=== PATIENT | male | born 1990 | race Two or more races ===

== ENCOUNTER 2024-01-18 10:46 | Emergency (ER) | payer SELFPAY ==
[2024-01-18 10:50] VITALS: BP 143/100; PULSE 103; TEMP 36.6; O2SAT 98; BMI 38.4
--- NOTE | 2024-01-18 11:02 | ED.GENADUL1 ---
HPI HPI - General Adult General Chief complaint: Recheck/Abnormal Lab/Rx Stated complaint: STD CHECK Time Seen by Provider: 01/18/24 10:49 History of Present Illness HPI narrative: 33-year-old male to the emergency department with chief complaint of requesting treatment for chlamydia. His female sexual partner tested positive for chlamydia during screening. He does not have any symptoms at this time. Related Data Previous Rx's ?Medication ?Instructions ?Recorded doxycycline monohydrate 100 mg 100 mg PO BID 7 days #14 caps 01/18/24 capsule Allergies Allergy/AdvReac Type Severity Reaction Status Date / Time No Known Drug Allergies Allergy Verified 01/18/24 10:53 Opioid HPI Opioid Management Most Recent Opioid Data: No Data to Display Review of Systems ROS Status of ROS 10 or more systems reviewed and unremarkable except as noted in history and below Exam Narrative Exam Narrative: VITALS: I have reviewed the triage vital signs. GENERAL: Well developed, well appearing adult in no acute distress. NEURO: Alert and oriented. Moves all extremities. Face is symmetric and expressive. EYES: PERRL. No scleral icterus or conjunctival injection. No discharge. HENT: Normocephalic, atraumatic. Hearing is grossly intact. Nares grossly patent and without discharge. Mucous membranes moist. NECK: No JVD. Patient moves neck without restriction. EXTREMITIES: Symmetric muscle bulk. No joint swelling. No clubbing, cyanosis, or deformity. SKIN: Warm and dry. Normal turgor. No rash or lesions appreciated. PSYCH: Mood, affect, and interaction is appropriate to the setting. Constitutional Vital Signs, click to edit/add: Last Vital Signs Temp 97.9 F 01/18/24 10:50 Pulse 103 H 01/18/24 10:50 Resp 18 01/18/24 10:50 BP 143/100 H 01/18/24 10:50 Pulse Ox 98 01/18/24 10:50 O2 Del Method Room Air 01/18/24 10:50 Course Vital Signs Vital signs: Vital Signs Temperature 97.9 F 01/18/24 10:50 Pulse Rate 103 H 01/18/24 10:50 Respiratory Rate 18 01/18/24 10:50 Blood Pressure 143/100 H 01/18/24 10:50 Pulse Oximetry 98 01/18/24 10:50 Oxygen Delivery Method Room Air 01/18/24 10:50 Temperature 97.9 F 01/18/24 10:50 Pulse Rate 103 H 01/18/24 10:50 Respiratory Rate 18 01/18/24 10:50 Blood Pressure 143/100 H 01/18/24 10:50 Pulse Oximetry 98 01/18/24 10:50 Oxygen Delivery Method Room Air 01/18/24 10:50 Medical Decision Making MDM Narrative Medical decision making narrative: Well-appearing 33-year-old male requesting STD treatment. Vital stable, the patient is afebrile. Reports he is currently asymptomatic. Gonorrhea and Chlamydia testing was sent. Rocephin and doxycycline. Safe sex practices were discussed. Return precautions were discussed. All questions were answered. Patient was discharged home. Discharge Plan Discharge Stand Alone Forms: Portal Instructions Chief Complaint: Recheck/Abnormal Lab/Rx Clinical Impression: Encounter for assessment of STD exposure Patient Disposition: Home, Self-Care Time of Disposition Decision: 11:00 Condition: Good Mode of Transportation: Private Vehicle Prescriptions / Home Meds: New doxycycline monohydrate 100 mg capsule 100 mg PO BID 7 Days Qty: 14 0RF Print Language: Haitian Instructions: Chlamydia (ED), Sexually Transmitted Diseases (ED), Safe Sex Practices (ED)
[2024-01-18] MEDS: CEFTRIAXONE 500 MG VIAL IM (11:07)
[2024-01-18] MEDS: WATER FOR INJECTION, STERILE 20 ML VIAL INJ (11:15)
[2024-01-18 11:16] VITALS: BP 136/99; PULSE 106; O2SAT 97
[2024-01-21 06:09] LABS: Neisseria gonorrhoeae, NAA Negative (Negative)
== END 2024-01-18 11:19 | disposition home or self-care (01) ==
LOC: ER 11:11
PROVIDERS: Emergency Provider Student in an Organized Health Care Education/Training Program
DX: Z20.2 Contact with and (suspected) exposure to infections with a predominantly sexual mode of transmission (principal)
CPT/HCPCS: 87491; 87591; 96372; 99284; J0696

== ENCOUNTER 2024-06-22 02:44 | Emergency (ER) | payer OTHER, SELFPAY ==
[2024-06-22 02:47] VITALS: BP 132/89; PULSE 83; TEMP 36.6; O2SAT 96; BMI 39.2
[2024-06-22 02:52] VITALS: O2SAT 96
[2024-06-22 02:53] VITALS: O2SAT 83
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
--- OUTSIDE RECORDS SUMMARY | 2024-06-22 02:53 | XMS_ITS | CCD ---
Author Organization 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 9 tablet 0 02/27/2021 Active Comment on above: Take 1 tablet by saturnino th three times daily as needed. fluticasone propionate 0.05 mg/actuat metered dose nasal spray (1 source) Corticosteroid Start: 1 take 2 spray(s) nasal route once daily at bedtime fluticasone (FLONASE ALLERGY RELIEF) 50 mcg/actuation nasal spray Indications: Acute otitis media, right Use 2 Sprays in each nostril daily at bedtime. 1 Bottle 0 01/30/2021 Active Comment on above: Use 2 Sprays in each nostril daily at bedtime. loratadine 10 mg oral tablet (1 source) Start: 1 take 1 tablet by mouth once daily loratadine (CLARITIN) 10 mg tablet Indications: Acute otitis media, right Take 1 tablet by mouth once daily. 20 tablet 0 01/30/2021 Active Comment on above: Take 1 tablet by saturnino th once daily. methylPREDNISolone (1 source) Corticosteroid Start: 1 methylPREDNISolone (MEDROL, RENETTA,) 4 mg Dose-Pack Indications: Acute right-sided low back pain with right-sided sciatica As Instructed per package 1 Package 0 02/27/2021 Active Comment on above: As Instructed per cathleen ckage Problems Problem Classification Problem Date Documented Da te Episodic/Chronic Alcohol-related disorders (1 source) Alcohol use, unspecified with intoxication, uncomplicated; Translations: [Alcohol use, unspecified with intoxication, uncomplicated] Onset: 02-18-2024 Episodic Spondylosis; intervertebral disc disorders; other back problems (1 source) Acute back pain with sciatica; Translations: [Lumbago with sciatica, right side] 02-27-2021 Episodic Unclassified (1 source) Overdose Onset: 12-24-2023 Results Test Name Value Interpretation Reference Range Facility Alcoholon 02-18-2024 Blood Alcohol Concentration 0.250 G/dL Normal [facility] Comment on above: Performed By: #### A LCOH #### [facility] [address] [place] [address] Ethanol [Mass/Vol] 285 mg/dL Normal [facility] Comment on above: Performed By: #### A LCOH #### [facility] [address] [place] [address] CBC With Platelet and Differ entialon 02-18-2024 Basophils (Bld) [#/Vol] 0.2 10*3/uL Normal 0.0-0.2 [facility] Comment on above: Performed By: #### C BCWD #### [facility] [address] [place] [address] Basophils/100 WBC (Bld) 1.5 % Normal [facility] Comment on above: Performed By: #### C BCWD #### [facility] [address] [place] [address] Eosinophils (Bld) [#/Vol] 0.4 10*3/uL Normal 0.0-0.7 [facility] Comment on above: Performed By: #### C BCWD #### [facility] [address] [place] [address] Eosinophils/100 WBC (Bld) 3.8 % Normal [facility] Comment on above: Performed By: #### C BCWD #### [facility] [address] [place] [address] Erythrocyte distribution width (RBC) [Ratio] 12.2 % Normal 11.5-14.5 [facility] Comment on above: Performed By: #### C BCWD #### [facility] [address] [place] [address] Hematocrit (Bld) [Volume fraction] 48.0 % Normal 42.0-52.0 [facility] Comment on above: Performed By: #### C BCWD #### [facility] [address] [place] [address] Hemoglobin (Bld) [Mass/Vol] 17.1 g/dL Normal 14.0-18.0 [facility] Comment on above: Performed By: #### C BCWD #### [facility] [address] [place] [address] Lymphocytes (Bld) [#/Vol] 4.2 10*3/uL Normal 1.0-4.8 [facility] Comment on above: Performed By: #### C BCWD #### [facility] [address] [place] [address] Lymphocytes/100 WBC (Bld) 42.1 % Normal [facility] Comment on above: Performed By: #### C BCWD #### [facility] [address] [place] [address] MCH (RBC) [Entitic mass] 31.0 pg Normal 27.0-31.3 [facility] Comment on above: Performed By: #### C BCWD #### [facility] [address] [place] [address] MCHC 35.6 % Normal 33.0-37.0 [facility] Comment on above: Performed By: #### C BCWD #### [facility] [address] [place] [address] MCV (RBC) [Entitic vol] 87.0 fL Normal 79.0-92.2 [facility] Comment on above: Performed By: #### C BCWD #### [facility] [address] [place] [address] Monocytes (Bld) [#/Vol] 0.8 10*3/uL Normal 0.2-0.8 [facility] Comment on above: Performed By: #### C BCWD #### [facility] [address] [place] [address] Monocytes/100 WBC (Bld) 8.0 % Normal [facility] Comment on above: Performed By: #### C BCWD #### [facility] [address] [place] [address] Neutrophils (Bld) [#/Vol] 4.4 10*3/uL Normal 1.4-6.5 [facility] Comment on above: Performed By: #### C BCWD #### [facility] [address] [place] [address] Neutrophils/100 WBC (Bld) 44.2 % Normal [facility] Comment on above: Performed By: #### C BCWD #### [facility] [address] [place] [address] Platelets (Bld) [#/Vol] 227 10*3/uL Normal 130-400 [facility] Comment on above: Performed By: #### C BCWD #### [facility] [address] [place] [address] RBC (Bld) [#/Vol] 5.52 10*6/uL Normal 4.70-6.10 [facility] Comment on above: Performed By: #### C BCWD #### [facility] [address] [place] [address] WBC (Bld) [#/Vol] 9.9 10*3/uL Normal 4.8-10.8 [facility] Comment on above: Performed By: #### C BCWD #### [facility] [address] [place] [address] Comprehensive Metabolic Pane khoi 02-18-2024 Anion gap [Moles/Vol] 14 mmol/L Normal 9-15 [facility] Comment on above: Performed By: #### C MP #### [facility] [address] [place] [address] Albumin [Mass/Vol] 4.3 g/dL Normal 3.5-4.6 [facility] Comment on above: Performed By: #### C MP #### [facility] [address] [place] [address] ALP [Catalytic activity/Vol] 106 U/L Critically high 35-104 [facility] Comment on above: Performed By: #### C MP #### [facility] [address] [place] [address] ALT [Catalytic activity/Vol] 152 U/L Critically high 0-41 [facility] Comment on above: Performed By: #### C MP #### [facility] [address] [place] [address] AST [Catalytic activity/Vol] 103 U/L Critically high 0-40 [facility] Comment on above: Performed By: #### C MP #### [facility] [address] [place] [address] Bilirubin [Mass/Vol] 0.6 mg/dL Normal 0.2-0.7 [facility] Comment on above: Performed By: #### C MP #### [facility] [address] [place] [address] Calcium [Mass/Vol] 8.4 mg/dL Low 8.5-9.9 [facility] Comment on above: Performed By: #### C MP #### [facility] [address] [place] [address] Chloride [Moles/Vol] 101 mmol/L Normal 95-107 [facility] Comment on above: Performed By: #### C MP #### [facility] [address] [place] [address] CO2 [Moles/Vol] 21 mmol/L Normal 20-31 [facility] Comment on above: Performed By: #### C MP #### [facility] [address] [place] [address] Creatinine [Mass/Vol] 0.94 mg/dL Normal 0.70-1.20 [facility] Comment on above: Performed By: #### C MP #### [facility] [address] [place] [address] GFR >90.0 Normal >60 [facility] Comment on above: Result Comment: Alexa atric calculator link [email or web address].[email or web address].org/[email or web address]/gfr_[email or web address] Effective Mar 04, 2022 These results are not intended for use in patients <18 years of age. eGFR results are calculated without a race factor using the 2020 CKD-EPI equation. Careful clinical correlation is recommended, particularly when comparing to results calculated using previous equations. The CKD-EPI equation is less accurate in patients with extremes of muscle mass, extra-renal metabolism of creatinine, excessive creatinine ingestion, or following therapy that affects renal tubular secretion. Performed By: #### C MP #### [facility] [address] [place] [address] Globulin (S) [Mass/Vol] 3.7 g/dL Critically high 2.3-3.5 [facility] Comment on above: Performed By: #### C MP #### [facility] [address] [place] [address] Glucose [Mass/Vol] 186 mg/dL Critically high 70-99 M [facility] Comment on above: Performed By: #### C MP #### [facility] [address] [place] [address] Potassium [Moles/Vol] 3.4 mmol/L Normal 3.4-4.9 [facility] Comment on above: Performed By: #### C MP #### [facility] [address] [place] [address] Protein [Mass/Vol] 8.0 g/dL Normal 6.3-8.0 [facility] Comment on above: Performed By: #### C MP #### [facility] [address] [place] [address] Sodium [Moles/Vol] 136 mmol/L Normal 135-144 [facility] Comment on above: Performed By: #### C MP #### [facility] [address] [place] [address] Urea nitrogen [Mass/Vol] 8 mg/dL Normal 6-20 [facility] Comment on above: Performed By: #### C MP #### [facility] [address] [place] [address] UR Drugs of Abuse Panelon Drug Screen Comment see below Normal [facility] Comment on above: Result Comment: This method is a screening test to detect only these drug classes as part of a medical workup. Confirmatory testing by another method should be ordered if clinically indicated. Performed By: #### U DRGS #### [facility] [address] [place] [address] UR Amphetamines Screen Negative Normal Negative < [facility] Comment on above: Performed By: #### U DRGS #### [facility] [address] [place] [address] UR Barbiturates Screen Negative Normal Negative < [facility] Comment on above: Performed By: #### U DRGS #### [facility] [address] [place] [address] UR Benzo Screen Negative Normal Negative < [facility] Comment on above: Performed By: #### U DRGS #### [facility] [address] [place] [address] UR Cannabinoids Screen Negative Normal Negative < [facility] Comment on above: Performed By: #### U DRGS #### [facility] [address] [place] [address] UR Cocaine Screen Negative Normal Negative < [facility] Comment on above: Performed By: #### U DRGS #### [facility] [address] [place] [address] UR Fentanyl Screen Negative Normal Negative < [facility] Comment on above: Performed By: #### U DRGS #### [facility] [address] [place] [address] UR Methadone Screen Negative Normal Negative < [facility] Comment on above: Performed By: #### U DRGS #### [facility] [address] [place] [address] UR Opiates Screen Negative Normal Negative < [facility] Comment on above: Performed By: #### U DRGS #### [facility] [address] [place] [address] UR Oxycodone Screen Negative Normal Negative < [facility] Comment on above: Performed By: #### U DRGS #### [facility] [address] [place] [address] UR PCP Screen Negative Normal Negative < [facility] Comment on above: Performed By: #### U DRGS #### [facility] [address] [place] [address] UR Propoxyphene Screen Negative Normal Negative < [facility] Comment on above: Performed By: #### U DRGS #### [facility] [address] [place] [address] [employer] 07-22-2022 [employer] [id number] CD:127 [facility] Remi 04-02-2021 [place] Telephone ([place]) ALEXIS GREENE ([id number]) 1990 M Date Time Provider Department 04/02/21 GREG APPLE During your visit today, we recorded the following information about you: Marianela Benedict 04/02/2021 9:20 AM Signed Patient calling stating that he needs his return to work letter with all restrictions noted. He would like to pick this up Please advise Brea Hooks LPN 04/02/2021 10:39 AM Signed Spoke with patient and informed him that gave him a letter on 03/01/21 with restrictions. He said he still has the letter and I read the letter back to him. He stated understanding. Allergies As of Date: 04/02/2021 (Not on File) Date Reviewed: 03/02/2021 Reviewed by: Jemima Crockett PA-C - Fully Assessed Reason for Visit: Letter [264] Prescriptions as of 04/02/2021 - amLODIPine (NORVASC) 5 mg tablet Take 1 tablet by mouth once daily. - meloxicam (MOBIC) 15 mg tablet Take 1 tablet by mouth once daily. - gabapentin (NEURONTIN) 300 mg capsule Take 1 tab PO TID. - methylPREDNISolone (MEDROL, RENETTA,) 4 mg Dose-Pack As Instructed per package - cyclobenzaprine (FLEXERIL) 10 mg tablet Take 1 tablet by mouth three times daily as needed. - fluticasone (FLONASE ALLERGY RELIEF) 50 mcg/actuation nasal spray Use 2 Sprays in each nostril daily at bedtime. - loratadine (CLARITIN) 10 mg tablet Take 1 tablet by mouth once daily. Problem List As Of Date 04/02/2021 Noted Resolved Tobacco use [Z72.0] 03/02/2021 Hypertension, essential [I10] 03/02/2021 Hepatitis C virus infection without hepatic com*03/02/2021 Encounter Status:Closed by BREA HOOKS LPN on 04/02/21 [facility] CNOVon 03-02-2021 CNOV Office Visit (FAMPLN ) ALEXIS GREENE ([id number]) 1990 Date Time Provider Department 03/02/21 9:20 AM JEMIMA CROCKETT During your visit today, we recorded the following information about you: Pulse Blood pressure Weight 86/minute 146/88 97.9 kg Jemima Crockett PA-C 03/02/2021 11:07 AM Signed This note was created using appeningriter. Subjective Alexis Greene is a 31 year old male. HPI Here for BP follow up. Seen at , was told BP was elevated. Does not monitor this at home. +fam hx of HTN, mom and mom's side -has high caffeine intake, energy drinks and coffee -denies cp, chest pressure, SOB, VÁSQUEZ, orthopnea, BLE edema. -never tx for HTN in the past Last 3 Encounter BP Readings: Date: BP: 03/02/2021 166/96 02/27/2021 150/89 01/30/2021 150/87 Diagnosed with hepatitis C in June. Unsure exactly when contracted. -suspects it was 3 yrs ago while living in [place], shared needles with someone and then was informed he tested positive -did not seek work up/care at that time -no abd pain, n/v/d. BMs normal. Denies jaundice. Smokes 1/2 pack-1 ppd, has smoked for years, started at age 17. -hx of etoh use and hx of drug use: fentanyl, heroin and meth. Sober x 8 months -has a sponsor, not seeing a therapist -has social anxiety but feels it is controlled. Denies depression/SI/HI. -building better support, overall doing well Seen by pain management, rx gabapentin but is not allowed to take this in his sober living facility. Will start meloxicam Review of Systems see hpi Objective BP 146/88 Pulse 86 Wt 97.9 kg (215 lb 14.4 oz) SpO2 99% Physical Exam Constitutional: Appearance: Normal appearance. Cardiovascular: Rate and Rhythm: Normal rate and regular rhythm. Heart sounds: Normal heart sounds, S1 normal and S2 normal. Pulmonary: Effort: Pulmonary effort is normal. No respiratory distress. Breath sounds: Normal breath sounds. No wheezing. Musculoskeletal: Right lower leg: No edema. Left lower leg: No edema. Neurological: Mental Status: He is alert. Psychiatric: Mood and Affect: Mood normal. Assessment and Plan 1. Hypertension, essential - ICD9: 401.9, ICD10: I10 (primary diagnosis) - Start amlodipine once daily - Goal BP < 130/80 - Limit salt and caffeine - Encouraged regular exercise - Follow up 1 month 2. Hepatitis C virus infection without hepatic coma, unspecified chronicity - ICD9: 070.70, ICD10: B19.20 - Has upcoming appointment with GI - Check labs and ultrasound - HCV QUANT RNA BY PCR - COMP METABOLIC PANEL - CBC + DIFF - US ABD RT UPPER QUADRANT 3. Elevated LFTs - ICD9: 790.6, ICD10: R79.89 - As above 4. Tobacco use - ICD9: 305.1, ICD10: Z72.0 - Aware, recommend cut back to < 1/2 pack per day 5. Radiculopathy, lumbosacral region - ICD9: 724.4, ICD10: M54.17 - Recent eval by pain management - Unable to take gabapentin (not allowed at sober living facility) - Trial of meloxicam - Heat/stretch - Follow up as scheduled PAYTON Rubi PA-C 03/02/2021 11:06 AM Addendum ASSESSMENT/PLAN: 1. Hypertension, essential - ICD9: 401.9, ICD10: I10 (primary diagnosis) - Start amlodipine once daily - Goal BP < 130/80 - Limit salt and caffeine - Encouraged regular exercise - Follow up 1 month 2. Hepatitis C virus infection without hepatic coma, unspecified chronicity - ICD9: 070.70, ICD10: B19.20 - Has upcoming appointment with GI - Check labs and ultrasound - HCV QUANT RNA BY PCR - COMP METABOLIC PANEL - CBC + DIFF - US ABD RT UPPER QUADRANT 3. Elevated LFTs - ICD9: 790.6, ICD10: R79.89 - As above 4. Tobacco use - ICD9: 305.1, ICD10: Z72.0 - Aware, recommend cut back to < 1/2 pack per day 5. Radiculopathy, lumbosacral region - ICD9: 724.4, ICD10: M54.17 - Recent eval by pain management - Unable to take gabapentin (not allowed at sober living facility) - Trial of meloxicam - Heat/stretch - Follow up as scheduled Jemima Crockett PA-C Referring Provider: ANAMARIA GARCIA [[id number]] Allergies As of Date: 03/02/2021 (Not on File) Date Reviewed: 03/02/2021 Reviewed by: Jemima Crockett PA-C - Fully Assessed Reason for Visit: Blood Pressure [15] Primary Visit Diagnosis:Hypertension, essential [I10] Other Visit Diagnoses:Hepatitis C virus infection without hepatic coma, unspecified chronicity [B19.20] Elevated LFTs [R79.89] Tobacco use [Z72.0] Radiculopathy, lumbosacral region [M54.17] Order(s):ESTABLISH WITH PRIMARY CARE ? NEW PATIENT [[id number]] Order #: [id number]: 1 HCV QUANT RNA BY PCR [SQHCQPCR] Order #: [id number] FUTURE COMP METABOLIC PANEL [SQCMP] Order #: [id number] FUTURE CBC + DIFF [SQCBCDIF] Order #: [id number] FUTURE US ABD RT UPPER QUADRANT [[id number]] Order #: [id number] FUTURE amLODIPine (NORVASC) 5 mg tabletTake 1 tablet by mouth once daily.Disp: 30 tabletRfl: 1 (more content not included)... Normal [facility] CNOVon 03-01-2021 CNOV Office Visit (PAINCC ) ALEXIS GREENE ([id number]) 1990 M Date Time Provider Department 03/01/21 2:30 PM [facility] During your visit today, we recorded the following information about you: Pulse Respiration Weight 80/minute 16/minute 97.1 kg Greg Apple MD 03/01/2021 6:27 PM Signed Referring Or Consulting Physician: Anamaria Garcia [id number] [facility] [address] CHIEF COMPLAINT: pain in my lower back , right hip,buttock and down the right leg to the foot HPI: This is a 31 year old male here for evaluation of pain that began 4 weeks ago following no particular inciting event. At this point, the pain is located in the areas detailed above (see cc). The patient describes the pain as sharp, soreness, shooting and stabbing and is a 6/10 in severity. It is constant and moderate The pain is exacerbated by walking, bending at the waist line and while working and is mitigated by laying on the left side or relax. In the past, the patient has been treated with medications. The patient is currently taking advil but this does not work for pain. In the past, the patient has been treated with the following interventional pain procedures: none Relevant [place] records were reviewed. Adverse Reaction to Medication: no Opioid Agreement: No Receiving Disability Income: No Last Date/Time Patient had Opioid Medication: Imaging Studies: 02/27/2021 ?3:27 PM - Radiology, [place] In Impression IMPRESSION: No acute findings. Questionable L5 pars defects. [employer]: [place] ? Transcribe Date/Time: Feb 27 2021 ?3:23P Dictated by : BEBETO ALFORD MD This examination was interpreted and the report reviewed and electronically signed by: BEBETO ALFORD MD on Feb 27 2021 ?3:25PM ?EST Results-Findings * * *Final Report* * * DATE OF EXAM: Feb 27 2021 ?3:05PM ? LNX ? 5228 ?- ?XR LUMBAR 3V AP/LAT/L5-S1 ?/ PROCEDURE REASON: Acute right-sided low back pain with right-sided sciatica ?? ? * * * * Physician Interpretation * * * * ?XR LUMBAR 3V AP/LAT/L5-S1 CLINICAL HISTORY: ?Acute right-sided low back pain with right-sided sciatica COMPARISON: None. RESULT: Lumbar vertebral body height is maintained. No subluxation. Disc spaces are preserved. Questionable L5 pars defects. I personally reviewed the above imaging findings, and discussed them with the patient in detail. ------- Is the patient receiving analgesia/pain relief from the current medications? (-/+) Has the current medication improved activities of daily living? (-/+) Have the current medications been associated with any adverse events? (-) Has the patient displayed any aberrant drug-related behaviors? (-) Illicit drug use? (in remission) ------- Patient denies loss of bowel or bladder control, unintentional weight loss, h/o malignancy, fevers/chills/night sweats. PAST MEDICAL HISTORY Diagnosis Date - Hepatitis C - Opioid dependence in remission (HCC) PSH: denies Social History Tobacco Use - Smoking status: yes - Smokeless tobacco: Substance Use Topics - Alcohol use: denies - Drug use: previous IVDA FH: Patient denies a family history of the current chief complaint. ALLERGIES Not on File Current Outpatient Medications Medication Sig - methylPREDNISolone (MEDROL, RENETTA,) 4 mg Dose-Pack As Instructed per package - cyclobenzaprine (FLEXERIL) 10 mg tablet Take 1 tablet by mouth three times daily as needed. - fluticasone (FLONASE ALLERGY RELIEF) 50 mcg/actuation nasal spray Use 2 Sprays in each nostril daily at bedtime. - loratadine (CLARITIN) 10 mg tablet Take 1 tablet by mouth once daily. No current facility-administered medications for this visit. REVIEW OF SYSTEMS: GENERAL: weight loss (-), malaise(+), fevers (-) HEENT: thrush(-), epistaxis(-) NECK: Negative for neck swelling. RESPIRATORY: Negative for cough, wheezing or shortness of breath (-). CARDIOVASCULAR: chest pain(-), leg swelling(-) or palpitations(-) GI: abdominal discomfort(-), blood in stools/melena/change in bowel habits(-). MUSCULOSKELETAL: joint pain(+), swelling(-), back pain(+) , muscle pain(+). SKIN: (-) for lesions, rash, and itching. PSYCH: sleep disturbance(+), mood disorder(-), recent psychosocial stressors(-). HEMATOLOGY/LYMPHOLOGY: Negative for prolonged bleeding, easy bruising, or swollen nodes (-) NEURO: Headaches(-), syncope(-), paralysis(-), seizures(-), tremors (-) All other reviewed and negative other than HPI. Scribe attestation: I, Alysha Cameron LPN (March 01, 2021 2:23 PM) attest that this documentation has been prepared under the d (more content not included)... Normal [facility] 03-01-2021 [place] Telephone ([facility]) ALEXIS GREENE ([id number]) 1990 M Date Time Provider Department 03/01/21 GREG APPLE During your visit today, we recorded the following information about you: Daron Comer Pss 03/01/2021 3:[address] Apple gave patient a consult to Hepatology for Hep C. When I scheduled the appointment it drove me to the [facility] and scheduled with Alysha Beach in [facility]. I just wanted to make sure this was scheduled correctly. Thank so much! Daron Comer Pss 03/08/2021 4:27 PM Signed Thank you!! Allergies As of Date: 03/01/2021 (Not on File) Date Reviewed: 03/01/2021 Reviewed by: Alysha Cameron LPN - Fully Assessed Reason for Visit: Future Appointment [256] Prescriptions as of 03/08/2021 - amLODIPine (NORVASC) 5 mg tablet Take 1 tablet by mouth once daily. - meloxicam (MOBIC) 15 mg tablet Take 1 tablet by mouth once daily. - gabapentin (NEURONTIN) 300 mg capsule Take 1 tab PO TID. - methylPREDNISolone (MEDROL, RENETTA,) 4 mg Dose-Pack As Instructed per package - cyclobenzaprine (FLEXERIL) 10 mg tablet Take 1 tablet by mouth three times daily as needed. - fluticasone (FLONASE ALLERGY RELIEF) 50 mcg/actuation nasal spray Use 2 Sprays in each nostril daily at bedtime. - loratadine (CLARITIN) 10 mg tablet Take 1 tablet by mouth once daily. Problem List As Of Date: 03/01/2021 (None) Encounter Status:Closed by DARON AMATO on 03/01/21 [facility] CNOVon 02-27-2021 CNOV Office Visit (EXPLOR ) ALEXIS GREENE ([id number]) 1990 M Date Time Provider Department 02/27/21 1:40 PM ANAMARIA GARCIA During your visit today, we recorded the following information about you: Temperature Pulse Blood pressure 98.5 degrees 55/minute 150/89 Anamaria Garcia APRN.MARKETING DEVELOPMENT REPRESENTATIVE 02/27/2021 5:41 PM Signed This note was created using appeningriter. Subjective Alexis Greene is a 31 year old male. HPI C/o right low back pain and right calf pain on and off for a couple weeks Denies injury, loss of bowel or bladder control. Pain described as tightness . Exacerbated with ROM, especially standing from seated position. Seems to be worst when getting in and out of bed in the morning. Admits shooting pain down right buttock to right knee amd intermittent paresthesia. No h/o similar pain. Taking advil with no relief bp noted to be elevated. Was told his BP was elevated at rehab facility 8 months ago. Has not had it checked since PAST MEDICAL HISTORY Diagnosis Date - Hepatitis C - Opioid dependence in remission (HCC) History reviewed. No pertinent surgical history. ALLERGIES Patient has no allergy information on record. MEDICATIONS methylPREDNISolone (MEDROL, RENETTA,) 4 mg Dose-Pack As Instructed per package cyclobenzaprine (FLEXERIL) 10 mg tablet Take 1 tablet by mouth three times daily as needed. fluticasone (FLONASE ALLERGY RELIEF) 50 mcg/actuation nasal spray Use 2 Sprays in each nostril daily at bedtime. loratadine (CLARITIN) 10 mg tablet Take 1 tablet by mouth once daily. History reviewed. No pertinent family history. Social History Tobacco Use - Smoking status: Never Smoker - Smokeless tobacco: Never Used Substance Use Topics - Alcohol use: Not on file - Drug use: Not on file Review of Systems Constitutional: Negative for activity change, appetite change, chills, fatigue, fever and unexpected weight change. HENT: Negative. Respiratory: Negative. Cardiovascular: Negative for chest pain, palpitations and leg swelling. Gastrointestinal: Negative. Genitourinary: Negative for dysuria and flank pain. Musculoskeletal: Positive for back pain and myalgias. Negative for arthralgias and joint swelling. Skin: Negative for color change, pallor, rash and wound. Neurological: Positive for numbness (intermittent paresthesia). Negative for dizziness, weakness, light-headedness and headaches. Objective BP 150/89 Pulse (!) 55 Temp 36.9 ?C (98.5 ?F) SpO2 97% Physical Exam Constitutional: General: He is not in acute distress. Appearance: He is well-developed. He is not ill-appearing or toxic-appearing. HENT: Head: Normocephalic and atraumatic. Right Ear: Hearing and external ear normal. Left Ear: Hearing and external ear normal. Nose: Nose normal. Mouth/Throat: Lips: Amo. Mouth: Mucous membranes are moist. Eyes: General: Lids are normal. Vision grossly intact. Gaze aligned appropriately. Conjunctiva/sclera: Conjunctivae normal. Pupils: Pupils are equal, round, and reactive to light. Cardiovascular: Rate and Rhythm: Normal rate and regular rhythm. Pulses: Dorsalis pedis pulses are 2+ on the right side and 2+ on the left side. Posterior tibial pulses are 2+ on the right side and 2+ on the left side. Heart sounds: Normal heart sounds, S1 normal and S2 normal. Pulmonary: Effort: Pulmonary effort is normal. Breath sounds: Normal breath sounds and air entry. No decreased breath sounds, wheezing, rhonchi or rales. Musculoskeletal: Cervical back: Normal range of motion and neck supple. Lumbar back: Tenderness and bony tenderness present. No swelling, edema, deformity, signs of trauma, lacerations or spasms. Decreased range of motion. Negative right straight leg raise test and negative left straight leg raise test. No scoliosis. Right lower leg: No deformity, lacerations, tenderness or bony tenderness. No edema. Left lower leg: No deformity, lacerations, tenderness or bony tenderness. No edema. Right ankle: Right Achilles Tendon: Normal. Left ankle: Left Achilles Tendon: Normal. Right foot: Normal capillary refill. No swelling. Normal pulse. Left foot: Normal capillary refill. No swelling. Normal pulse. Comments: Mild bony tenderness lumbar midline. Right paraspinal tenderness. No current calf pain. Negative homans Skin: General: Skin is warm and dry. Capillary Refill: Capillary refill takes less than 2 seconds. Coloration: Skin is not cyanotic, mottled or pale. Neurological: Mental Status: He is alert and oriented to person, place, and time. Sensory: Sensation is intact. Motor: Motor function is intact. Coordination: Coordination is intact. Deep Tendon Reflexes: Reflexes are normal and symmetric. Psychiatric: Attention and Perception: Attention normal. Mood and Affect: Mood normal. Speech: Speech normal. Behavior: Beha (more content not included)... Normal [facility] XR LUMBAR 3V AP/LAT/L5-S1on 02-27-2021 XR LUMBAR 3V AP/LAT/L5-S1 * * *Final Report* * * DATE OF EXAM: Feb 27 2021 3:05PM LNX [id number] - XR LUMBAR 3V AP/LAT/L5-S1 / PROCEDURE REASON: Acute right-sided low back pain with right-sided sciatica * * * * Physician Interpretation * * * * XR LUMBAR 3V AP/LAT/L5-S1 CLINICAL HISTORY: Acute right-sided low back pain with right-sided sciatica COMPARISON: None. RESULT: Lumbar vertebral body height is maintained. No subluxation. Disc spaces are preserved. Questionable L5 pars defects. IMPRESSION: No acute findings. Questionable L5 pars defects. Engineer Design And Construction: LENO Transcribe Date/Time: Feb 27 2021 3:23P Dictated by : BEBETO ALFORD MD This examination was interpreted and the report reviewed and electronically signed by: BEBETO ALFORD MD on Feb 27 2021 3:25PM EST [id number] Normal [facility] XR LUMBAR GENERAL 3V AP/LAT/ L5-S1on 02-27-2021 [facility] CNPNon 01-31-2021 CNPN Telephone (EXPCHC) ALEXIS GREENE ([id number]) 1990 M Date Time Provider Department 01/31/21 TED ATKINS [facility] During your visit today, we recorded the following information about you: Ted Atkins PA-C 01/31/2021 1:02 PM Signed You tested negative for COVID-19. Please allow 24 hours to pass with no fever and improvement of symptoms without the help of fever reducing medication in order to reuturn to work and daily activities. Maria Elena Costello Ma 01/31/2021 3:28 PM Signed Patient notified by number listed in chart . Patient verified name and date of . Message was given . Patient verbalized understanding. No questions at this time . Allergies As of Date: 01/31/2021 (Not on File) Date Reviewed: 01/30/2021 Reviewed by: Lionel Gilliland, DON.MARKETING DEVELOPMENT REPRESENTATIVE - Fully Assessed Reason for Visit: Results [95] Prescriptions as of 01/31/2021 - amoxicillin (AMOXIL) 875 mg tablet Take 1 tablet by mouth every 12 hours for 10 days. - fluticasone (FLONASE ALLERGY RELIEF) 50 mcg/actuation nasal spray Use 2 Sprays in each nostril daily at bedtime. - loratadine (CLARITIN) 10 mg tablet Take 1 tablet by mouth once daily. Problem List As Of Date: 01/31/2021 (None) Encounter Status:Closed by TED ATKINS on 01/31/21 Normal [facility] Coronavirus 2019on 1 SARS-CoV-2 (COVID-19) RNA NAGI+probe Ql (Unsp spec) UPPER RESPIRATORY TRACT SWAB Normal [facility] Comment on above: Performed By: #### C OVID ####[facility], [place] [phone] SARS-CoV-2 (COVID-19) RNA NAGI+probe Ql (Unsp spec) Negative for COVID19 (SARS CoV2) by RT-PCR or equivalent method. Normal Negative for COVID19 (SARS CoV2) by RT-PCR or equivalent method. [facility] Comment on above: Result Comment: This test was developed and its performance characteristics determined by [facility]'s [facility] [place]. This test has been authorized by FDA under an Emergency Use Authorization (EUA). This test has been validated in accordance with the FDA's Guidance Document Policy for Diagnostics Testing in Laboratories Certified to Perform High Complexity Testing under CLIA prior to Emergency use Authorization for Coronavirus Disease 2019 during the Public Health Emergency issued on July 31, 2019. Test performed by [facility], [facility] [place], [facility] [place], [place] [address]. Performed By: #### C OVID ####[facility] [place], [place] [phone] CNOVon 01-30-2021 CNOV Office Visit (EXP[facility]C ) ALEXIS GREENE ([id number]) 1990 M Date Time Provider Department 01/30/21 8:00 PM LIONEL GILLILAND [facility] During your visit today, we recorded the following information about you: Temperature Pulse Respiration Blood pressure 97.9 degrees 79/minute 20/minute 150/87 Lionel Lookarlnessa, VENDING SERVICE TECHNICIAN.MARKETING DEVELOPMENT REPRESENTATIVE 01/30/2021 8:51 PM Signed Otitis media is an infection of the middle ear. The middle ear sits behind the eardrum. This infection may be caused by a virus or bacteria and often follows a cold. Otitis media is not contagious. INSTRUCTIONS: 1. If an antibiotic has been prescribed,it should be taken exactly as prescribed. Do not stop the medicine even if the symptoms go away. 2. Vxva-ahf-nntpxxt pain medication may be taken or other pain medication as prescribed by the doctor. 3. Nothing should be placed in the ear unless instructed by your doctor. 4. The patient may return to school or work when the temperature is normal (98.6 F or 37 C). 5. The patient should not swim while the ear is infected. CALL YOUR PRIMARY CARE PROVIDERS OFFICE- -If you do not feel better within 48-72 hours. -If you develop a temperature over 102 F (39 C). -If you develop drainage from the affected ear. -If you have any new problem that may be related to the medicine prescribed. COVID-19 (Novel Coronavirus): - You are being tested for COVID-19. You will be notified within 2 days if your test comes back positive. - While awaiting these results, please refer to the following recommendations from the CDC regarding isolation precautions: Steps to Follow: Isolation: You should follow the prevention steps below until a healthcare provider says you can return to your normal activities. Stay home except to get medical care - People who are mildly ill with COVID-19 are able to isolate at home during their illness. - You should restrict activities outside your home, except for getting medical care. - Do not go to work, school, or public areas. Avoid using public transportation, ride-sharing, taxis, or public air travel. Separate yourself from other people and animals in your home People: As much as possible, you should stay in a specific room and away from other people in your home. Also, you should use a separate bathroom, if available. Animals: You should restrict contact with pets and other animals while you are sick with COVID-19, just like you would around other people. Although there have not been reports of pets or other animals becoming sick with COVID-19, it is still recommended that people sick with COVID-19 limit contact with animals until more information is known about the virus. When possible, have another member of your household care for your animals while you are sick. If you are sick with COVID-19, avoid contact with your pet, including petting, snuggling, being kissed or licked, and sharing food. If you must care for your pet or be around animals while you are sick, wash your hands before and after you interact with pets and wear a facemask. See COVID-19 and Animals for more information. Call ahead before visiting your doctor If you have a medical appointment, call the healthcare provider and tell them that you have or may have COVID-19. This will help the healthcare provider's office take steps to keep other people from getting infected or exposed. Personal Protection: You should wear a facemask when you are around other people (e.g., sharing a room or vehicle) or pets. If you are not able to wear a facemask (for example, because it causes trouble breathing), then people who live with you should not stay in the same room with you, or they should wear a facemask if they enter your room. Cover your coughs and sneezes - Cover your mouth and nose with a tissue when you cough or sneeze. Throw used tissues in a lined trash can. Immediately wash your hands with soap and water for at least 20 seconds or, if soap and water are not available, clean your hands with an alcohol-based hand publishing director that contains at least 60% alcohol. - Wash your hands often with soap and water for at least 20 seconds, especially after blowing your nose, coughing, or sneezing; going to the bathroom; and before eating or preparing food. If soap and water are not readily available, use an alcohol-based hand publishing director with at least 60% alcohol, covering all surfaces of your hands and rubbing them together until they feel dry. Soap and water are the best option if hands are visibly dirty. - Avoid touching your eyes, nose, and mouth with unwashed hands. Avoid sharing personal household items - You should not share dishes, drinking glasses, cups, eating utensils, towels, or bedding with other people or pets in your home. After using these items, they should be washed thoroughly with soap and water. Clean all H (more content not included)... Normal [facility] Encounters Encounter Date Encounter Type Care Provider Facility Start: 02-18-2024 End: 02-19-2024 Emergency department patient visit [facility] Start: 12-24-2023 End: 12-24-2023 Emergency department patient visit WILLI [facility] Start: 02-27-2021 End: 02-27-2021 Subsequent hospital visit by physician Xr [facility] Comment on above: Acute right-sided lo w back pain with right-sided sciatica [M54.41] Procedures Date Procedure Procedure Detail Performing Clinician Start: 02-27-2021 Radex spine lumbosac ral 2/3 views Anamaria Garcia APRN.RICHI Work Phone: Plan of Treatment Date Care Activity Detail Author Start: 01-31-2023 Influenza vaccination INFLUENZA (#1) [facility] Start: 06-02-2022 DEPRESSION ASSESSMENT DEPRESSION ASS ESSMENT [facility] Start: 03-02-2022 ANNUAL PCP TEAM ART HISTORY PROFESSOR REZA DISEASE VISIT ANNUAL PCP TEAM CHRONIC DISEASE VISIT [facility] Start: 01-22-2011 Urine microalbumin profile DTAP,TDAP,TD (1 - Tdap) [facility] Start: 01-22-2010 BP CONTROLLED (<130/80) BP CONTROLLE D (<130/80) [facility] Start: 01-22-1998 PNEUMOCOCCAL (1 - PCV) PNEUMOCOCCAL (1 - PCV) [facility] Start: 1990 COVID-19 VACCINE (#1) COVID-19 VACCI NE (#1) [facility] Start: 1990 HEPATITIS B (1 of 3 - 3-dose series) HEPATITIS B (1 of 3 - 3-dose series) [facility] Social History Date Type Detail Facility Start: 01-30-2021 Tobacco smoking stat us NHIS Never smoked tobacco [facility] Start: 01-30-2021 Tobacco use and exposure Smoke less tobacco non-user [facility] Start: 01-30-2021 End: 02-27-2021 History of Social function [facility] Start: 01-30-2021 End: 02-27-2021 Tobacco use panel [facility] National Score (1-10 0), lower number is lower risk Not on file [facility] Start: 1990 Sex Assigned At Not on file [facility] Start: 01-28-2021 End: 02-27-2021 Exposure to SARS-CoV-2 (event) Not sure [facility] Clinical Note 03-20-2021 Note Date & Type Note Facility 03-20-2021 Note Patient Outreach (IN TMMN) ALEXIS GREENE ([id number]) 1990 M Date Time Provider Department 03/20/21 GRISEL BROWN During your visit today, we recorded the following information about you: Allergies As of Date: 03/20/2021 (Not on File) Date Reviewed: 03/02/2021 Reviewed by: Jemima Crockett PA-C - Fully Assessed Visit Diagnosis:Hypertension, essential [I10] Order(s):LIPID PANEL BASIC [SQLIPB] Order #: [id number] FUTURE Prescriptions as of 03/23/2021 - amLODIPine (NORVASC) 5 mg tablet Take 1 tablet by mouth once daily. - meloxicam (MOBIC) 15 mg tablet Take 1 tablet by mouth once daily. - gabapentin (NEURONTIN) 300 mg capsule Take 1 tab PO TID. - methylPREDNISolone (MEDROL, RENETTA,) 4 mg Dose-Pack As Instructed per package - cyclobenzaprine (FLEXERIL) 10 mg tablet Take 1 tablet by mouth three times daily as needed. - fluticasone (FLONASE ALLERGY RELIEF) 50 mcg/actuation nasal spray Use 2 Sprays in each nostril daily at bedtime. - loratadine (CLARITIN) 10 mg tablet Take 1 tablet by mouth once daily. Problem List As Of Date 03/20/2021 Noted Resolved Tobacco use [Z72.0] 03/02/2021 Hypertension, essential [I10] 03/02/2021 Hepatitis C virus infection without hepatic com*03/02/2021 Encounter Status:Closed by JOSÉ MIGUEL PERRYR on 03/23/21 [facility] Progress note 03-02-2021 Note Date & Type Note Facility 03-02-2021 Note HNO ID: [id number] Author: Jemima Crockett PA-C Service: ? Author Type: Physician Bog Cutter Type: Progress Notes Filed: 03/02/2021 11:07 AM Note Text: This note was created using NoteWriter. Subjective Alexis Greene is a 31 year old male. HPI Here for BP follow up. Seen at , was told BP was elevated. Does not monitor this at home. +fam hx of HTN, mom and mom's side -has high caffeine intake, energy drinks and coffee -denies cp, chest pressure, SOB, VÁSQUEZ, orthopnea, BLE edema. -never tx for HTN in the past Last 3 Encounter BP Readings: Date: BP: 03/02/2021 166/96 02/27/2021 150/89 01/30/2021 150/87 Diagnosed with hepatitis C in June. Unsure exactly when contracted. -suspects it was 3 yrs ago while living in [place], shared needles with someone and then was informed he tested positive -did not seek work up/care at that time -no abd pain, n/v/d. BMs normal. Denies jaundice. Smokes 1/2 pack-1 ppd, has smoked for years, started at age 17. -hx of etoh use and hx of drug use: fentanyl, heroin and meth. Sober x 8 months -has a sponsor, not seeing a therapist -has social anxiety but feels it is controlled. Denies depression/SI/HI. -building better support, overall doing well Seen by pain management, rx gabapentin but is not allowed to take this in his sober living facility. Will start meloxicam Review of Systems see hpi Objective BP 146/88 Pulse 86 Wt 97.9 kg (215 lb 14.4 oz) SpO2 99% Physical Exam Constitutional: Appearance: Normal appearance. Cardiovascular: Rate and Rhythm: Normal rate and regular rhythm. Heart sounds: Normal heart sounds, S1 normal and S2 normal. Pulmonary: Effort: Pulmonary effort is normal. No respiratory distress. Breath sounds: Normal breath sounds. No wheezing. Musculoskeletal: Right lower leg: No edema. Left lower leg: No edema. Neurological: Mental Status: He is alert. Psychiatric: Mood and Affect: Mood normal. Assessment and Plan 1. Hypertension, essential - ICD9: 401.9, ICD10: I10 (primary diagnosis) - Start amlodipine once daily - Goal BP < 130/80 - Limit salt and caffeine - Encouraged regular exercise - Follow up 1 month 2. Hepatitis C virus infection without hepatic coma, unspecified chronicity - ICD9: 070.70, ICD10: B19.20 - Has upcoming appointment with GI - Check labs and ultrasound - HCV QUANT RNA BY PCR - COMP METABOLIC PANEL - CBC + DIFF - US ABD RT UPPER QUADRANT 3. Elevated LFTs - ICD9: 790.6, ICD10: R79.89 - As above 4. Tobacco use - ICD9: 305.1, ICD10: Z72.0 - Aware, recommend cut back to < 1/2 pack per day 5. Radiculopathy, lumbosacral region - ICD9: 724.4, ICD10: M54.17 - Recent eval by pain management - Unable to take gabapentin (not allowed at sober living facility) - Trial of meloxicam - Heat/stretch - Follow up as scheduled Jemima Crockett PA-C [facility] Progress note 03-01-2021 Note Date & Type Note Facility 03-01-2021 Note HNO ID: [id number] Author: Greg Apple MD Service: ? Author Type: Physician Type: Progress Notes Filed: 03/01/2021 6:27 PM Note Text: Referring Or Consulting Physician: Anamaria Garcia [address] [facility] [place] [address] CHIEF COMPLAINT: pain in my lower back , right hip,buttock and down the right leg to the foot HPI: This is a 31 year old male here for evaluation of pain that began 4 weeks ago following no particular inciting event. At this point, the pain is located in the areas detailed above (see cc). The patient describes the pain as sharp, soreness, shooting and stabbing and is a 6/10 in severity. It is constant and moderate The pain is exacerbated by walking, bending at the waist line and while working and is mitigated by laying on the left side or relax. In the past, the patient has been treated with medications. The patient is currently taking advil but this does not work for pain. In the past, the patient has been treated with the following interventional pain procedures: none Relevant [place] records were reviewed. Adverse Reaction to Medication: no Opioid Agreement: No Receiving Disability Income: No Last Date/Time Patient had Opioid Medication: Imaging Studies: 02/27/2021 ?3:27 PM - Radiology, [place] In Impression IMPRESSION: No acute findings. Questionable L5 pars defects. Engineer Design And Construction: PSCB ? Transcribe Date/Time: Feb 27 2021 ?3:23P Dictated by : BEBETO ALFORD MD This examination was interpreted and the report reviewed and electronically signed by: BEBETO ALFORD MD on Feb 27 2021 ?3:25PM ?EST Results-Findings * * *Final Report* * * DATE OF EXAM: Feb 27 2021 ?3:05PM ? LNX ? [id number] ?- ?XR LUMBAR 3V AP/LAT/L5-S1 ?/ PROCEDURE REASON: Acute right-sided low back pain with right-sided sciatica ?? ? * * * * Physician Interpretation * * * * ?XR LUMBAR 3V AP/LAT/L5-S1 CLINICAL HISTORY: ?Acute right-sided low back pain with right-sided sciatica COMPARISON: None. RESULT: Lumbar vertebral body height is maintained. No subluxation. Disc spaces are preserved. Questionable L5 pars defects. I personally reviewed the above imaging findings, and discussed them with the patient in detail. Is the patient receiving analgesia/pain relief from the current medications? (-/+) Has the current medication improved activities of daily living? (-/+) Have the current medications been associated with any adverse events? (-) Has the patient displayed any aberrant drug-related behaviors? (-) Illicit drug use? (in remission) Patient denies loss of bowel or bladder control, unintentional weight loss, h/o malignancy, fevers/chills/night sweats. PAST MEDICAL HISTORY Diagnosis Date - Hepatitis C - Opioid dependence in remission (HCC) PSH: denies Social History Tobacco Use - Smoking status: yes - Smokeless tobacco: Substance Use Topics - Alcohol use: denies - Drug use: previous IVDA FH: Patient denies a family history of the current chief complaint. ALLERGIES Not on File Current Outpatient Medications Medication Sig - methylPREDNISolone (MEDROL, RENETTA,) 4 mg Dose-Pack As Instructed per package - cyclobenzaprine (FLEXERIL) 10 mg tablet Take 1 tablet by mouth three times daily as needed. - fluticasone (FLONASE ALLERGY RELIEF) 50 mcg/actuation nasal spray Use 2 Sprays in each nostril daily at bedtime. - loratadine (CLARITIN) 10 mg tablet Take 1 tablet by mouth once daily. No current facility-administered medications for this visit. REVIEW OF SYSTEMS: GENERAL: weight loss (-), malaise(+), fevers (-) HEENT: thrush(-), epistaxis(-) NECK: Negative for neck swelling. RESPIRATORY: Negative for cough, wheezing or shortness of breath (-). CARDIOVASCULAR: chest pain(-), leg swelling(-) or palpitations(-) GI: abdominal discomfort(-), blood in stools/melena/change in bowel habits(-). MUSCULOSKELETAL: joint pain(+), swelling(-), back pain(+) , muscle pain(+). SKIN: (-) for lesions, rash, and itching. PSYCH: sleep disturbance(+), mood disorder(-), recent psychosocial stressors(-). HEMATOLOGY/LYMPHOLOGY: Negative for prolonged bleeding, easy bruising, or swollen nodes (-) NEURO: Headaches(-), syncope(-), paralysis(-), seizures(-), tremors (-) All other reviewed and negative other than HPI. Scribe attestation: AlinaAlysha Lissettboris DICK (March 01, 2021 2:23 PM) attest that this documentation has been prepared under the direction and in the presence of Greg Apple MD Electronically Signed: Greg Apple MD March 01, 2021 2:23 PM Physician attestation: Greg Fuller MD, personally performed the services described in this documentation (more content not included)... [facility] Progress note 02-27-2021 Note Date & Type Note Facility 02-27-2021 Note HNO ID: [id number] Author: RT Darwin(R) Service: ? Author Type: Technologist Type: Progress Notes Filed: 02/27/2021 3:04 PM Note Text: Radiology Service Progress Note PATIENT NAME: Alexis Greene DATE OF SERVICE: February 27, 2021 TIME: 3:03 PM PATIENT IDENTITY VERIFICATION COMPLETED USING TWO (2) IDENTIFIERS: Name and Date of confirmed by patient verbally. FALL SCREENING: Has the patient had 2 falls in the last year or 1 fall with injury or currently using an Ambulatory Assistive Device (Walker, Cane, Wheelchair, Crutches, etc.)? No PATIENT GENDER DATA: Male PATIENT RELEVANT IMPLANT DATA REVIEWED: Not Applicable RADIOLOGY DEPARTMENT: General X-ray: Exam(s) Completed: Spine X-Ray(s): Lumbar AP / LAT / L5-S1 PERIPHERAL IV DATA: Not applicable SIGNED BY: RT Darwin(R) February 27, 2021 3:03 PM [facility] Progress note 02-27-2021 Note Date & Type Note Facility 02-27-2021 Note HNO ID: [id number] Author: Anamaria Garcia APRN.MARKETING DEVELOPMENT REPRESENTATIVE Service: ? Author Type: Nurse Practitioner Type: Progress Notes Filed: 02/27/2021 5:41 PM Note Text: This note was created using NoteWriter. Subjective Alexis Greene is a 31 year old male. HPI C/o right low back pain and right calf pain on and off for a couple weeks Denies injury, loss of bowel or bladder control. Pain described as tightness . Exacerbated with ROM, especially standing from seated position. Seems to be worst when getting in and out of bed in the morning. Admits shooting pain down right buttock to right knee amd intermittent paresthesia. No h/o similar pain. Taking advil with no relief bp noted to be elevated. Was told his BP was elevated at rehab facility 8 months ago. Has not had it checked since PAST MEDICAL HISTORY Diagnosis Date - Hepatitis C - Opioid dependence in remission (HCC) History reviewed. No pertinent surgical history. ALLERGIES Patient has no allergy information on record. MEDICATIONS methylPREDNISolone (MEDROL, RENTETA,) 4 mg Dose-Pack As Instructed per package cyclobenzaprine (FLEXERIL) 10 mg tablet Take 1 tablet by mouth three times daily as needed. fluticasone (FLONASE ALLERGY RELIEF) 50 mcg/actuation nasal spray Use 2 Sprays in each nostril daily at bedtime. loratadine (CLARITIN) 10 mg tablet Take 1 tablet by mouth once daily. History reviewed. No pertinent family history. Social History Tobacco Use - Smoking status: Never Smoker - Smokeless tobacco: Never Used Substance Use Topics - Alcohol use: Not on file - Drug use: Not on file Review of Systems Constitutional: Negative for activity change, appetite change, chills, fatigue, fever and unexpected weight change. HENT: Negative. Respiratory: Negative. Cardiovascular: Negative for chest pain, palpitations and leg swelling. Gastrointestinal: Negative. Genitourinary: Negative for dysuria and flank pain. Musculoskeletal: Positive for back pain and myalgias. Negative for arthralgias and joint swelling. Skin: Negative for color change, pallor, rash and wound. Neurological: Positive for numbness (intermittent paresthesia). Negative for dizziness, weakness, light-headedness and headaches. Objective BP 150/89 Pulse (!) 55 Temp 36.9 ?C (98.5 ?F) SpO2 97% Physical Exam Constitutional: General: He is not in acute distress. Appearance: He is well-developed. He is not ill-appearing or toxic-appearing. HENT: Head: Normocephalic and atraumatic. Right Ear: Hearing and external ear normal. Left Ear: Hearing and external ear normal. Nose: Nose normal. Mouth/Throat: Lips: Amo. Mouth: Mucous membranes are moist. Eyes: General: Lids are normal. Vision grossly intact. Gaze aligned appropriately. Conjunctiva/sclera: Conjunctivae normal. Pupils: Pupils are equal, round, and reactive to light. Cardiovascular: Rate and Rhythm: Normal rate and regular rhythm. Pulses: Dorsalis pedis pulses are 2+ on the right side and 2+ on the left side. Posterior tibial pulses are 2+ on the right side and 2+ on the left side. Heart sounds: Normal heart sounds, S1 normal and S2 normal. Pulmonary: Effort: Pulmonary effort is normal. Breath sounds: Normal breath sounds and air entry. No decreased breath sounds, wheezing, rhonchi or rales. Musculoskeletal: Cervical back: Normal range of motion and neck supple. Lumbar back: Tenderness and bony tenderness present. No swelling, edema, deformity, signs of trauma, lacerations or spasms. Decreased range of motion. Negative right straight leg raise test and negative left straight leg raise test. No scoliosis. Right lower leg: No deformity, lacerations, tenderness or bony tenderness. No edema. Left lower leg: No deformity, lacerations, tenderness or bony tenderness. No edema. Right ankle: Right Achilles Tendon: Normal. Left ankle: Left Achilles Tendon: Normal. Right foot: Normal capillary refill. No swelling. Normal pulse. Left foot: Normal capillary refill. No swelling. Normal pulse. Comments: Mild bony tenderness lumbar midline. Right paraspinal tenderness. No current calf pain. Negative homans Skin: General: Skin is warm and dry. Capillary Refill: Capillary refill takes less than 2 seconds. Coloration: Skin is not cyanotic, mottled or pale. Neurological: Mental Status: He is alert and oriented to person, place, and time. Sensory: Sensation is intact. Motor: Motor function is intact. Coordination: Coordination is intact. Deep Tendon Reflexes: Reflexes are normal and symmetric. Psychiatric: Attention and Perception: Attention normal. Mood and Affect: Mood normal. Speech: Speech normal. Behavior: Behavior normal. Thought Content: Thought content normal. Assessment and Plan 1. Acute right-sided low back pain with right-sided sciatica - XR LUMBAR GENERAL 3V AP/LAT/L5-S1; Future Questionable pars defect - CONSULT TO SPINE MEDICAL (more content not included)... [facility] Progress note 01-31-2021 Note Date & Type Note Facility 01-31-2021 Note HNO ID: [id number] Author: Lionel Gilliland APRN.[facility] Service: ? Author Type: Nurse Practitioner Type: Progress Notes Filed: 01/31/2021 8:05 AM Note Text: This note was created using appeningriter. Subjective Alexis Greene is a 31 year old male. The history is provided by the patient. No sign language teacher was used. URI He complains of frequent throat clearing. This is a new problem. The current episode started yesterday. The problem occurs constantly. The problem has been gradually worsening. Associated symptoms include nasal congestion, PND, rhinorrhea, sneezing and a sore throat. Pertinent negatives include no ear pain. His symptoms are aggravated by nothing. His symptoms are alleviated by nothing. His symptoms are not alleviated by rest. There are no known risk factors for lung disease. Review of Systems Constitutional: Negative. HENT: Positive for congestion, rhinorrhea, sneezing and sore throat. Negative for ear pain. Respiratory: Negative. Cardiovascular: Positive for PND. Musculoskeletal: Negative. Negative for neck pain. Skin: Negative. Patient COVID vaccinated? No History reviewed. No pertinent past medical history. Current Outpatient Medications No current facility-administered medications for this visit. Objective BP 150/87 Pulse 79 Temp 36.6 ?C (97.9 ?F) (Temporal) Resp 20 SpO2 97% Physical Exam Vitals and nursing note reviewed. Constitutional: General: He is not in acute distress. Appearance: He is well-developed. HENT: Head: Normocephalic and atraumatic. Right Ear: Ear canal and external ear normal. Tympanic membrane is erythematous and bulging. Left Ear: Tympanic membrane, ear canal and external ear normal. Nose: Congestion present. Mouth/Throat: Lips: Amo. Mouth: Mucous membranes are moist. Pharynx: Oropharynx is clear. Uvula midline. Posterior oropharyngeal erythema present. Cardiovascular: Rate and Rhythm: Normal rate and regular rhythm. Heart sounds: Normal heart sounds. Pulmonary: Effort: Pulmonary effort is normal. Breath sounds: Normal breath sounds. Musculoskeletal: General: Normal range of motion. Cervical back: Normal range of motion and neck supple. Lymphadenopathy: Cervical: No cervical adenopathy. Skin: General: Skin is warm and dry. Assessment and Plan ASSESSMENT/PLAN: 1. Acute otitis media, right - ICD9: 382.9, ICD10: H66.91 (primary diagnosis) - Will begin treatment with Amoxicillin for 10 days - Supportive care with plenty of fluids, rest, and analgesia prn. - Flonase 2 puffs to each nostril at bedtime. - Claritin 10mg PO daily - Discussed medication dosage, usage, goals of therapy, and side effects. - Please follow up if your symptoms persist or worsen. - AMOXICILLIN 875 MG TABLET - FLUTICASONE PROPIONATE 50 MCG/ACTUATION NASAL SPRAY,SUSPENSION - LORATADINE 10 MG TABLET 2. Encounter for screening for COVID-19 - ICD9: , ICD10: Z11.52 - Denies concern for COVID-19; however lives in a group setting so agreeable to testing. - Swab obtained during visit - 2019 CORONAVIRUS Lionel Gilliland APRN.CNP [facility] Evaluation note Note Date & Type Note Facility Evaluation note Diagnosis Acute right-sided low back pain with right-sided sciatica documented in this encounter [facility] Reason for referral (narrative) Diagnostic Procedure Only (Urgent) - Closed Note Date & Type Note Facility Reason for referral (narrati ve) Specialty Diagnoses / Procedures Referred By Keron rosenberg Referred To Contact XR IMAGING Diagnoses Acute right-sided low back pain with right-sided sciatica Procedures XR LUMBAR GENERAL 3V AP/LAT/L5-S1 X-RAY L-S SPINE AP/LATERAL Anamaria Garcia APRN.MARKETING DEVELOPMENT REPRESENTATIVE [address] [facility] [address] [place] [address] Xr Imaging Referral ID Status Reason Start Date Expiration Date V isits Requested Visits Authorized [id number] Closed Auto-Generate d Referral 02/27/2021 03/29/2022 1 1 [facility] Reason for visit Narrative Diagnostic Procedure Only (Urgent) - Closed Note Date & Type Note Facility Reason for visit Narrative Specialty Diagnoses / Procedures Referred By Keron rosenberg Referred To Contact XR IMAGING Diagnoses Acute right-sided low back pain with right-sided sciatica Procedures XR LUMBAR GENERAL 3V AP/LAT/L5-S1 X-RAY L-S SPINE AP/LATERAL Anamaria Garcia APRN.MARKETING DEVELOPMENT REPRESENTATIVE [address] [facility] [address] [place] [address] Xr Imaging Referral ID Status Reason Start Date Expiration Date V isits Requested Visits Authorized [id number] Closed Auto-Generate d Referral 02/27/2021 03/29/2022 1 1 [facility] Summary Purpose Family History No Family History Records FoundNo Family History Records FoundNo Family History Records Found Advance Directives No Advanced Directives Records FoundNo Advanced Directives Records FoundNo Advanced Directives Records Found Additional Source Comments (unrecognized sect ion and content) No Status Records FoundNo Status Records FoundNo Status Records Found INFORMATION SOURCE (unrecogn ized section and content) DATE CREATED AUTHOR 07/06/2021 [facility] DATE CREATED AUTHOR AUTHOR'S ORGANIZ ATION 07/22/2022 [facility] DATE CREATED AUTHOR AUTHOR'S ORGANIZ ATION 02/21/2024 [facility] Source Comments (unrecognize d section and content) In the event this informatio n is protected by the Federal Confidentiality of Alcohol and Drug Abuse Patient Records regulations: The Federal rules restrict any use of the information to criminally investigate or prosecute any alcohol or drug abuse patient.[facility] FOR RECORDS PERTAINING TO PATIENTS WHO ARE OR HAVE BEEN ENROLLED IN A CHEMICAL DEPENDENCY/SUBSTANCEABUSE PROGRAM, SOME INFORMATION MAY BE OMITTED. This clinical summary was aggregated from multiple sources. Caution should be exercised in using it in the provision of clinical care. This summary normalizes information from multiple sources, and as a consequence, information in this document may materially change the coding, format and clinical context of patient data. In addition, data may be omitted in some cases. CLINICAL DECISIONS SHOULD BE BASED ON THE PRIMARY CLINICAL RECORDS. [facility] [employer] [facility]. provides no warranty or guarantee of the accuracy or completeness of information in this document.
== END 2024-06-22 02:58 | disposition home or self-care (01) ==
PROVIDERS: Emergency Provider Emergency Medicine
DX: Z02.89 Encounter for other administrative examinations (principal)
CPT/HCPCS: 99284